=== PATIENT | female | born 1985 | race Caucasian/White ===

== ENCOUNTER 2020-09-11 03:54 | Inpatient (IN) ==
[2020-09-11] MEDS ORDERED: Mag Hydrox/Al Hydrox/Simeth 30 ML UDC PO PRN (04:24)
[2020-09-11] MEDS ORDERED: MOM Conc 10 ML UD.LIQ PO PRN (04:24)
[2020-09-11] MEDS ORDERED: *HR* LORazepam 1 MG TABLET PO PRN (04:24)
[2020-09-11] MEDS ORDERED: *HR* LORazepam 2 MG/ML VIAL IM PRN (04:24)
[2020-09-11] MEDS ORDERED: haloperidoL 5 MG TABLET PO PRN (04:24)
[2020-09-11] MEDS ORDERED: Haloperidol Lactate 5 MG/ML VIAL IM PRN (04:24)
[2020-09-11] MEDS ORDERED: Acetaminophen 325 MG TABLET PO PRN (04:24)
[2020-09-11] MEDS ORDERED: hydrOXYzine pamoate 25 MG CAPSULE PO PRN (04:24)
[2020-09-11] MEDS ORDERED: *HR* OxyCODONE/APAP 5/325 TABLET PO PRN (09:13)
[2020-09-11] MEDS: BuPROPion XL (24 HR) 150 MG TABLET PO SCH (10:21)
[2020-09-11] MEDS: predniSONE 20 MG TABLET PO SCH (10:21)
[2020-09-11] MEDS: Lithium Carbonate 300 MG CAPSULE PO SCH ×2 (10:22→21:46)
[2020-09-11] MEDS: levoFLOXacin 500 MG TABLET PO SCH (10:24)
[2020-09-11] MEDS: *HR* LORazepam 1 MG TABLET PO PRN ×2 (10:25→16:37)
[2020-09-11] MEDS: Gabapentin 400 MG CAPSULE PO SCH ×4 (11:34→21:46)
[2020-09-11] MEDS: *HR* OxyCODONE/APAP 5/325 TABLET PO PRN (16:37)
[2020-09-12] MEDS: BuPROPion XL (24 HR) 150 MG TABLET PO SCH (08:48)
[2020-09-12] MEDS: Gabapentin 400 MG CAPSULE PO SCH ×4 (08:48→21:00)
[2020-09-12] MEDS: Lithium Carbonate 300 MG CAPSULE PO SCH ×2 (08:48→20:59)
[2020-09-12] MEDS: predniSONE 20 MG TABLET PO SCH (08:49)
[2020-09-12] MEDS: levoFLOXacin 500 MG TABLET PO SCH (08:49)
[2020-09-12] MEDS: *HR* OxyCODONE/APAP 5/325 TABLET PO PRN ×3 (08:51→20:59)
[2020-09-12] MEDS ORDERED: Loratadine 10 MG TABLET PO PRN (12:10)
[2020-09-12] MEDS: *HR* LORazepam 1 MG TABLET PO PRN (15:12)
[2020-09-12] MEDS: Melatonin 3 MG TABLET PO PRN (20:59)
[2020-09-12] MEDS: traZODone 50 MG TABLET PO PRN (21:00)
[2020-09-12] MEDS: Nicotine 21 MG PATCH.TD24 TD SCH (21:11)
[2020-09-13] MEDS: *HR* OxyCODONE/APAP 5/325 TABLET PO PRN ×4 (03:59→22:25)
[2020-09-13] MEDS: levoFLOXacin 500 MG TABLET PO SCH (08:44)
[2020-09-13] MEDS: Nicotine 21 MG PATCH.TD24 TD SCH (08:45)
[2020-09-13] MEDS: Gabapentin 400 MG CAPSULE PO SCH ×4 (08:45→21:49)
[2020-09-13] MEDS: Lithium Carbonate 300 MG CAPSULE PO SCH ×2 (08:45→21:49)
[2020-09-13] MEDS: BuPROPion XL (24 HR) 150 MG TABLET PO SCH (08:46)
[2020-09-13] MEDS: predniSONE 20 MG TABLET PO SCH (08:46)
[2020-09-13] MEDS: traZODone 50 MG TABLET PO PRN (21:53)
[2020-09-13] MEDS: Melatonin 3 MG TABLET PO PRN (21:56)
[2020-09-13] MEDS: *HR* LORazepam 1 MG TABLET PO PRN (22:28)
[2020-09-14] MEDS: *HR* OxyCODONE/APAP 5/325 TABLET PO PRN ×4 (04:58→23:01)
[2020-09-14] MEDS: BuPROPion XL (24 HR) 150 MG TABLET PO SCH (09:02)
[2020-09-14] MEDS: levoFLOXacin 500 MG TABLET PO SCH (09:02)
[2020-09-14] MEDS: Gabapentin 400 MG CAPSULE PO SCH ×4 (09:02→20:49)
[2020-09-14] MEDS: Lithium Carbonate 300 MG CAPSULE PO SCH (09:02)
[2020-09-14] MEDS: predniSONE 20 MG TABLET PO SCH (09:03)
[2020-09-14] MEDS: Nicotine 21 MG PATCH.TD24 TD SCH (09:03)
[2020-09-14] MEDS: OXcarbazepine 150 MG TABLET PO SCH ×2 (13:23→20:49)
[2020-09-14] MEDS: Melatonin 3 MG TABLET PO PRN (20:49)
[2020-09-14] MEDS: *HR* LORazepam 1 MG TABLET PO PRN (20:49)
[2020-09-15] MEDS: *HR* OxyCODONE/APAP 5/325 TABLET PO PRN ×4 (05:03→21:21)
[2020-09-15] MEDS: levoFLOXacin 500 MG TABLET PO SCH (09:14)
[2020-09-15] MEDS: predniSONE 20 MG TABLET PO SCH (09:16)
[2020-09-15] MEDS: Gabapentin 400 MG CAPSULE PO SCH ×4 (09:16→21:20)
[2020-09-15] MEDS: Nicotine 21 MG PATCH.TD24 TD SCH (09:16)
[2020-09-15] MEDS: OXcarbazepine 150 MG TABLET PO SCH ×2 (09:17→21:20)
[2020-09-15] MEDS: BuPROPion XL (24 HR) 150 MG TABLET PO SCH (09:17)
[2020-09-15 16:39] LABS: Basophils % 0.3 %; Eosinophils % 0.1 %; Hemoglobin 13.7 g/dL (11.5-15.4); Immature Granulocytes % 0.6 % (0-4); Lymphocytes # 2.2 K/mcL (0.6-4.6); Mean Corpuscular HGB Conc 33.4 g/dL (31.6-35.5); Mean Corpuscular Hemoglobin 30.5 pg (28.0-33.3); Mean Corpuscular Volume 91.3 fL (83.0-100.0); Monocytes # 0.4 K/mcL (0.0-1.3); Monocytes % 2.6 %; Platelet Count 332 K/mcL (140-400); Red Blood Count 4.49 M/mcL (3.82-4.97); Red Cell Distribution Width 12.7 % (11.5-14.5); Segmented Neutrophils % 81.4 %; White Blood Count 14.7 K/mcL (4.3-11.1)
[2020-09-15 16:56] LABS: INR 0.9; Prothrombin Time 10.7 Seconds (9.4-12.1)
[2020-09-15 16:59] LABS: Activated Partial Thrombo Time 24.3 Seconds (26.0-36.0)
[2020-09-15 17:06] LABS: BUN/Creatinine Ratio 25 (6-26); Blood Urea Nitrogen 14 mg/dL (6-20); Calcium 9.3 mg/dL (8.6-10.3); Carbon Dioxide 23 mEq/L (23-29); Chloride 105 mEq/L (98-107); Glucose 110 mg/dL (70-105); Osmolality,Calculated 285 (280-300); Potassium 4.4 mEq/L (3.5-5.1); Sodium 137 mEq/L (136-145); eGFR For African Americans > 60 (> 60); eGFR For Non-African Americans > 60 (> 60)
[2020-09-15 17:45] LABS: Lipase 15 Units/L (11-82)
[2020-09-15] MEDS: *HR* LORazepam 1 MG TABLET PO PRN (21:21)
[2020-09-15] MEDS: traZODone 50 MG TABLET PO PRN (21:27)
[2020-09-15] MEDS: Melatonin 3 MG TABLET PO PRN (21:27)
[2020-09-16] MEDS: levoFLOXacin 500 MG TABLET PO SCH (08:11)
[2020-09-16] MEDS: *HR* OxyCODONE/APAP 5/325 TABLET PO PRN ×2 (08:12→12:19)
[2020-09-16] MEDS: BuPROPion XL (24 HR) 150 MG TABLET PO SCH (08:12)
[2020-09-16] MEDS: Gabapentin 400 MG CAPSULE PO SCH ×2 (08:13→12:19)
[2020-09-16] MEDS: OXcarbazepine 150 MG TABLET PO SCH (08:13)
[2020-09-16] MEDS: predniSONE 20 MG TABLET PO SCH (08:13)
[2020-09-16] MEDS: Nicotine 21 MG PATCH.TD24 TD SCH (08:14)
[2020-09-16 09:06] VITALS: BP 118/81
== END 2020-09-16 14:25 | disposition home or self-care (01) | DRG 753 ==
LOC: SUATTDRO 03:54 → 1ANU 03:54
PROVIDERS: ADMIT Psychiatry & Neurology Psychiatry; ATTEND Psychiatry & Neurology Psychiatry